=== PATIENT | female | born 1990 | race Two or more races ===

== ENCOUNTER 2021-03-04 11:33 | Emergency (ER) | payer OTHER ==
[~2021-03-04] VITALS: Ht 162.6 cm; Wt 54.4 kg
[2021-03-04 11:51] VITALS: BP 118/72
--- NOTE | 2021-03-04 11:59 | NUR ---
AT BEDSIDE FOR EVAL.
[2021-03-04] MEDS ORDERED: PRED50TA PO (12:09)
[2021-03-04] MEDS ORDERED: DIPH50CA4 PO (12:09)
[2021-03-04] MEDS ORDERED: FAMO-131 PO (12:09)
[2021-03-04] MEDS ORDERED: methylPREDNISolone SOD SUCC 125 MG/2ML VIAL ONE (12:14)
--- NOTE | 2021-03-04 12:27 | NUR ---
Patient discharged to home in stable condition. Written and verbal after care instructions given. Patient verbalizes understanding of instruction.
[2021-03-04] MEDS ORDERED: methylPREDNISolone SOD SUCC 125 MG/2ML VIAL IM ONE (12:30)
== END 2021-03-04 12:29 | disposition home or self-care (01) ==
LOC: ER 11:33
DX: L50.9 Urticaria, unspecified (principal); Z79.899 Other long term (current) drug therapy
CPT/HCPCS: 96372; 99283; J2930